=== PATIENT | male | born 1975 | race Caucasian/White ===

== ENCOUNTER 2016-09-01 16:02 | Emergency (ER) | payer OTHER | END 2016-09-01 18:09 | disposition home or self-care (01) | LOC: FER 16:02 | DX: H66.93 Otitis media, unspecified, bilateral (principal); F17.210 Nicotine dependence, cigarettes, uncomplicated | CPT/HCPCS: 99282 ==

== ENCOUNTER 2021-05-10 05:01 | Emergency (ER) | payer OTHER ==
[~2021-05-10 05:01] MED LIST: CIPRO500 MG PO; DICLOFENAC SODI75 MG PO
[2021-05-10] MEDS ORDERED: NORCO 5-325 TA1 EACH PO (06:45)
[2021-05-10] MEDS ORDERED: DICLOFENAC SODI75 MG PO (06:45)
== END 2021-05-10 07:32 | disposition home or self-care (01) ==
LOC: FER 05:01
DX: S97.112A Crushing injury of left great toe, initial encounter (principal); S92.425A Nondisplaced fracture of distal phalanx of left great toe, initial encounter for closed fracture; F17.210 Nicotine dependence, cigarettes, uncomplicated; W22.8XXA Striking against or struck by other objects, initial encounter
CPT/HCPCS: 73660; 99283